=== PATIENT | female | born 1990 | race Hispanic/Latino ===

== ENCOUNTER 2016-11-14 10:13 | Day surgery (SDC) | payer BC ==
[~2016-11-14] VITALS: Ht 165.1 cm; Wt 89.8 kg
[~2016-11-14 10:13] MED LIST: ADDERALL XR 3030 MG PO; CLARITIN,ALAVAR10 MG PO; ENDOCET 5-3251 EACH PO; FERROUS SULFAT325 MG PO; IBUPROFEN800 MG PO; NEURONTIN300 MG PO; NEURONTIN400 MG PO; NOHOMEMEDS; PERCOCET 5/31 TABLET PO; PRENATAL VITAM1 EAC3 PO; TRAMADOL HCL50 MG PO; TYLENOL EXTRA500 MG PO; VICODIN HP 10-1 EACH PO
== END 2016-11-14 11:50 | disposition home or self-care (01) ==
LOC: PAIN 10:13 → SDC 10:30 → PAIN 11:50
DX: M47.26 Other spondylosis with radiculopathy, lumbar region (principal); M51.16 Intervertebral disc disorders with radiculopathy, lumbar region; Z79.1 Long term (current) use of non-steroidal anti-inflammatories (NSAID); M47.814 Spondylosis without myelopathy or radiculopathy, thoracic region; E66.01 Morbid (severe) obesity due to excess calories; Z68.33 Body mass index [BMI] 33.0-33.9, adult; Z79.891 Long term (current) use of opiate analgesic
CPT/HCPCS: J1030; J1885; J2250; J3010; S0020

== ENCOUNTER 2016-11-21 10:19 | Day surgery (SDC) | payer BC ==
[~2016-11-21] VITALS: Ht 165.1 cm; Wt 89.8 kg
== END 2016-11-21 11:50 | disposition home or self-care (01) ==
LOC: PAIN 10:19 → SDC 10:30 → PAIN 10:30
PROC: 015B3ZZ Destruction of Lumbar Nerve, Percutaneous Approach (ICD-10-PCS; principal; 2016-11-21)
DX: M47.26 Other spondylosis with radiculopathy, lumbar region (principal); F41.9 Anxiety disorder, unspecified; M51.36 Other intervertebral disc degeneration, lumbar region; Z79.891 Long term (current) use of opiate analgesic; M47.814 Spondylosis without myelopathy or radiculopathy, thoracic region; F17.200 Nicotine dependence, unspecified, uncomplicated; Z88.5 Allergy status to narcotic agent
CPT/HCPCS: J1030; J1885; J2250; J3010; S0020

== ENCOUNTER 2017-07-18 23:07 | Emergency (ER) | payer BC ==
[~2017-07-18] VITALS: Ht 165.1 cm; Wt 88.9 kg
[2017-07-18 23:57] LABS: HEMATOCRIT 39.9 % (36.0-46.0); HEMOGLOBIN 13.2 G/DL (11.9-15.5); MCHC 33.1 G/DL (30.0-36.0); MCV 87.7 FL (83-99); PLATELET COUNT 245 K/uL (156-360); RBC DIS.WIDTH-CV 12.1 % (11.8-14.6); RED BLOOD COUNT 4.55 M/uL (3.80-5.20); WHITE BLOOD COUNT 9.1 K/uL (4.1-10.2)
[2017-07-19 00:13] LABS: CHLORIDE 108 mEq/L (99-109); POTASSIUM 3.5 mEq/L (3.7-5.4); SODIUM 140 mEq/L (136-147)
[2017-07-19 00:15] LABS: GLUCOSE 92 mg/dL (70-99)
[2017-07-19 00:19] LABS: CREATININE 0.7 mg/dL (0.6-1.3); GFR ESTIMATE (CALCULATED) > 59 mL/min/
[2017-07-19 00:20] LABS: UREA NITROGEN (BUN) 7 mg/dL (9-23)
[2017-07-19 00:24] LABS: TROP-I INTERPRETATION NEGATIVE; TROPONIN-I < 0.01 ng/mL (0.0-0.30)
[2017-07-19 02:50] LABS: ALBUMIN 4.2 g/dL (3.2-4.8)
[2017-07-19 02:53] LABS: TOTAL PROTEIN 6.7 g/dL (6.4-8.3)
[2017-07-19 02:55] LABS: TOTAL BILIRUBIN 0.3 mg/dL (0.0-1.0)
[2017-07-19 02:56] LABS: ALKALINE PHOSPHATASE 70 IU/L (3-129)
[2017-07-19 02:58] LABS: AST (GOT) 16 IU/L (2-34); DIRECT BILIRUBIN 0.2 mg/dL (0.0-0.3)
[2017-07-19 02:59] LABS: ALT (GPT) 21 IU/L (3-49)
[2017-07-19 03:00] LABS: LIPASE 22 U/L (1.0-51.0)
[2017-07-19 03:04] LABS: D-DIMER ELISA < 150.00 ng/mLDDU (<230)
[2017-07-19 04:16] LABS: TROP-I INTERPRETATION NEGATIVE; TROPONIN-I < 0.01 ng/mL (0.0-0.30)
[2017-07-19] MEDS ORDERED: ATARAX,VISTARIL25 MG PO (04:18)
[2017-07-19 04:40] VITALS: BP 119/81
== END 2017-07-19 04:58 | disposition home or self-care (01) ==
LOC: EME 23:07
PROVIDERS: Emergency Medicine
DX: R07.89 Other chest pain (principal); F41.1 Generalized anxiety disorder; F17.200 Nicotine dependence, unspecified, uncomplicated; Z88.6 Allergy status to analgesic agent
CPT/HCPCS: 71046; 80048; 80076; 83690; 84484; 85027; 85379; 93005; 94640; 99281; 99284; J1100; Q0177